=== PATIENT | female | born 1995 | race Caucasian/White ===

== ENCOUNTER 2019-09-13 22:05 | Emergency (ER) | payer OTHER ==
--- NOTE | 2019-09-13 22:23 | EDM.PDOC ---
ED HPI GENERAL MEDICAL PROBLEM - General Chief Complaint: Chest Pain Stated Complaint: RIGHT ARM NUMB Time Seen by Provider: 09/13/19 22:14 Source of Information: Reports: Patient History Limitations: Reports: No Limitations - History of Present Illness INITIAL COMMENTS - FREE TEXT/NARRATIVE: Patient is a 24-year-old female who has numerous complaints that been occurring over the past week. Patient is complaining of chest pain which changes from her left to right side and sometimes radiates down her right arm sometimes down her left arm for the past week. Patient did have an episode of this for several hours last night and also again tonight for 2 to 3 hours prior to arrival. Patient does feel short of breath at times though not tonight and denies any nausea or diaphoresis. Her chest discomfort is worse when she takes deep breath or with movement. She denies having any cough or any fever or chills. She is not been having vomiting or diarrhea. She denies any bloody or tarry stools. Patient has not taken anything for her above symptoms other than smoking some marijuana which she is not sure if this is helping. Patient also does have a burning sensation in her chest at times and is following up with an a GI provider this Sunday for additional work-up. Patient is also feeling anxious. Is not a cigarette smoker and does not have high blood pressure high cholesterol or diabetes. Patient has not been using any cocaine or other drugs. She denies any exertional component to her symptoms. Duration: Week(s): (1) Location: Reports: Chest Quality: Reports: Pressure, Sharp, Stabbing Severity: Moderate Improves with: Reports: None Worsens with: Reports: Breathing, Movement Associated Symptoms: Reports: Chest Pain. Denies: Cough, Diaphoresis, Fever/ Chills, Nausea/Vomiting, Shortness of Breath chest pain Pain Score (Numeric/FACES): 4 - Related Data Allergies Allergy/AdvReac Type Severity Reaction Status Date / Time No Known Allergies Allergy Verified 09/13/19 22:11 Home Meds: Home Meds . [No Known Home Meds] 09/13/19 [History] ED ROS GENERAL - Review of Systems Review Of Systems: Comprehensive ROS is negative, except as noted in HPI. ED EXAM, GENERAL - Physical Exam Exam: See Below Exam Limited By: No Limitations General Appearance: Alert, No Apparent Distress, Anxious Nose: Normal Inspection Head: Atraumatic, Normocephalic Neck: Normal Inspection, Supple Respiratory/Chest: No Respiratory Distress, Lungs Clear, Normal Breath Sounds, No Accessory Muscle Use, Other (I can reproduce patient's chest pain and her right arm symptoms with pushing on her external chest and upper back.). No: Chest Non-Tender Cardiovascular: Regular Rate, Rhythm, No Edema, No JVD Back Exam: Full Range of Motion, Muscle Spasm. No: CVA Tenderness (L), CVA Tenderness (R) Extremities: Normal Inspection, Normal Range of Motion, No Pedal Edema Neurological: Alert, Oriented Psychiatric: Normal Affect, Anxious Skin Exam: Warm, Dry Lymphatic: No Adenopathy EKG INTERPRETATION EKG Date: 09/13/19 Rhythm: NSR QRS: Normal ST-T: Normal Course - Vital Signs Text/Narrative:: Patient's d-dimer and troponin are both negative. EKG is unremarkable. Her chest discomfort and arm symptoms are reproducible with my exam. I will give her instructions for use ibuprofen with meals and heat and massage to her back. I will give her a prescription for some lorazepam to use as needed. She is following up with GI this Sunday. May return to ER if her symptoms are worse or exertional. Low-fat diet with small meals only. Last Recorded V/S: Last Vital Signs Temp 36.4 C 09/13/19 22:11 Pulse 70 09/13/19 22:11 Resp 19 09/13/19 22:11 BP 134/86 09/13/19 22:11 Pulse Ox 99 09/13/19 22:11 - Orders/Labs/Meds Labs: Laboratory Tests 09/13/19 09/13/19 Range/Units 22:30 22:30 D-Dimer, Quantitative < 0.19 (0.0-0.50) mg/L FEU Troponin I < 0.050 (0.000-0.056) ng/mL Departure - Departure Time of Disposition: 23:19 Disposition: Home, Self-Care 01 Condition: Good Clinical Impression: Atypical chest pain Instructions: Nonspecific Chest Pain, Adult Forms: ED Department Discharge Additional Instructions: Low-fat diet with small meals only. Follow-up with GI as scheduled. Return to ER if worse or exertional symptoms. Ibuprofen with meals for chest wall symptoms. Heat and massage to back. Care Plan Goals: The following information is given to patients seen in the emergency department who are being discharged to home. This information is to outline your options for follow-up care. We provide all patients seen in our emergency department with a follow-up referral. The need for follow-up, as well as the timing and circumstances, are variable depending upon the specifics of your emergency department visit. If you don't have a primary care physician on staff, we will provide you with a referral. We always advise you to contact your personal physician following an emergency department visit to inform them of the circumstance of the visit and for follow-up with them and/or the need for any referrals to a consulting specialist. The emergency department will also refer you to a specialist when appropriate. This referral assures that you have the opportunity for follow-up care with a specialist. All of these measure are taken in an effort to provide you with optimal care, which includes your follow-up. Under all circumstances we always encourage you to contact your private physician who remains a resource for coordinating your care. When calling for follow-up care, please make the office aware that this follow-up is from your recent emergency room visit. If for any reason you are refused follow-up, please contact the [facility] Emergency Department at and asked to speak to the emergency department charge nurse. Sepsis Event Note - Focused Exam Vital Signs: Vital Signs Temp Pulse Resp BP Pulse Ox 09/13/19 22:11 36.4 C 70 19 134/86 99 Date Exam was Performed: 09/13/19 Time Exam was Performed: 23:13
== END 2019-09-13 23:25 | disposition home or self-care (01) ==
LOC: MW.ED 22:05
DX: R07.89 Other chest pain (principal)
CPT/HCPCS: 36415; 84484; 85379; 93005; 99283; 99285-25